=== PATIENT | male | born 1995 | race Caucasian/White ===

== ENCOUNTER 2017-07-25 14:32 | Emergency (ER) | payer SELFPAY ==
[~2017-07-25] VITALS: Ht 162.6 cm; Wt 63.0 kg
[2017-07-25] MEDS ORDERED: LIDOCAINE HCL 1% 20ML VIAL (Pyxis) INJ MC ONE (15:00)
[2017-07-25] MEDS ORDERED: BACITRACIN ZINC OINT UDPKT TOP ONE ×2 (15:00→19:30)
[2017-07-25] MEDS ORDERED: LIDOCAINE HCL/PF 1% 10 MG/ML 5ML VIAL IJ NR (16:15)
[2017-07-25] MEDS ORDERED: IBUPROFEN 600MG TABLET PO ONE (17:15)
[2017-07-25 19:40] VITALS: BP 127/66
== END 2017-07-25 19:40 | disposition home or self-care (01) ==
LOC: ER 16:23
DX: S60.00XA Contusion of unspecified finger without damage to nail, initial encounter (principal); W18.30XA Fall on same level, unspecified, initial encounter; Y93.89 Activity, other specified; Y92.89 Other specified places as the place of occurrence of the external cause; Y99.2 Volunteer activity
CPT/HCPCS: 12001; 73130; 99284; J3490; X7700; Z7610

== ENCOUNTER 2017-07-29 09:42 | Emergency (ER) | payer SELFPAY ==
[~2017-07-29] VITALS: Ht 167.6 cm; Wt 70.0 kg
[2017-07-29 11:49] VITALS: BP 120/74
== END 2017-07-29 11:49 | disposition home or self-care (01) ==
LOC: ER 09:42
DX: L03.119 Cellulitis of unspecified part of limb (principal); L53.8 Other specified erythematous conditions; Z48.00 Encounter for change or removal of nonsurgical wound dressing
CPT/HCPCS: 99283; Z7610

== ENCOUNTER 2017-08-01 10:53 | Emergency (ER) | payer SELFPAY ==
[~2017-08-01] VITALS: Ht 160 cm; Wt 70.0 kg
[2017-08-01 11:03] VITALS: BP 131/71
== END 2017-08-01 14:00 | disposition home or self-care (01) ==
LOC: ER 11:47
DX: S61.218D Laceration without foreign body of other finger without damage to nail, subsequent encounter (principal); X58.XXXD Exposure to other specified factors, subsequent encounter
CPT/HCPCS: 99281; Z7610